=== PATIENT | female | born 1990 | race African-American/Black ===

== ENCOUNTER → 2018-02-11 | Outpatient (CLI) | payer MEDICAID ==
--- NOTE | 2018-02-11 16:56 | Diagnostic Imaging Report ---
INDICATION: Undergoing anatomical assessment, supervision of normal . TECHNIQUE: Multiple real-time grayscale images were obtained over the gravid uterus. COMPARISON: None. FINDINGS: There is presence of single viable intrauterine , currently in cephalic presentation. The placenta is low lying and appears to represent a probable marginal placental previa. Normal amount of amniotic fluid. cardiac activity at 138 beats per minute. anatomical evaluation including visualized portions of the kidneys, bladder, stomach, intracranial structures, four-chamber heart, three-vessel cord and cord insertion site as well as spine appearing unremarkable. Gestational sac configuration is unremarkable. No abnormal perigestational fluid collections. The maternal adnexa is not imaged. The cervical length at 4.3 cm. Biometrical measurements are as follows: Biparietal 5.01 cm, age 21 weeks 2 days. Head circumference 18.04 cm, age 20 weeks 4 days. Abdominal circumference 16.65 cm, age 21 weeks 5 days. Femur length 3.46 cm, age 21 weeks 0 days. Sonographic estimate age: 21 weeks 1 days. Sonographic estimated date of delivery: 06/23/18. Estimated Weight: 409 gm (+/- 60 gm). LMP percentile: 81%. heart rate: 138 beats per minute. number: 1 of 1. IMPRESSION: 1. Single viable intrauterine , currently in cephalic presentation. Sonographically estimated age at 21 weeks 1 day for an estimated date of delivery of June 23, 2018. 2. The placenta is low lying with what appears to be currently marginal placenta previa. Followup imaging is recommended. Dictated by: Dictated on workstation # [id number]
== END ==
LOC: RAD 15:11
PROVIDERS: ATTEND Obstetrics & Gynecology
DX: O44.42 Low lying placenta NOS or without hemorrhage, second trimester (principal); Z3A.21 21 weeks gestation of pregnancy
CPT/HCPCS: 76805

== ENCOUNTER 2018-06-09 07:15 | Inpatient (IN) | payer MEDICAID ==
[~2018-06-09] VITALS: Ht 172.7 cm; Wt 90.7 kg
[2018-06-09] VITALS (44 sets, daily range): BP systolic 129–161; BP diastolic 63–119
--- OUTSIDE RECORDS SUMMARY | 2018-06-09 07:23 | XMS REPORT ---
Author Author Peyton Randhawa [facility] Address [address] [place] [id number] Care Team Providers Care Bunch Maker Hand Name Role Phone Peyton Randhawa PCP Laly Barrera PreferredProvider Unavailable Allergies and Adverse Reactions Name Reaction Notes NO KNOWN DRUG ALLERGIES Plan of Treatment Planned Activity Comments Planned Date Planned Time Plan/Goal Breast ultrasound 11/06/2017 12:00 AM Medications Active Name Start Date Estimated Completion Date SIG Comments 28-800 mg-mcg oral tablet take 1 tablet by oral route daily Name Start Date Expiration Date SIG Comments Zithromax Z-Noah Oral Tablet 250 mg 02/16/2010 02/21/2010 take 2 tablets ( 500 mg) by oral route once daily for 1 day then 1 tablet (250 mg) by oral route once daily for 4 days Zithromax Oral Tablet 250 mg 11/02/2010 11/07/2010 take 2 tablets (500 mg) by oral route once daily for 1 day then 1 tablet (250 mg) by oral route once daily for 4 days metronidazole Oral Tablet 500 mg 06/21/2011 06/28/2011 take 1 tablet (500 mg) by oral route 2 times per day for 7 days Augmentin Oral Tablet 500-125 mg 05/08/2012 05/15/2012 take 1 tablet by oral route every 12 hours for 7 days Lutera (28) Oral tablet 0.1-20 mg-mcg 07/27/2012 08/24/2012 TAKE 1 TABLET BY MOUTH DAILY penicillin V potassium oral tablet 500 mg 10/08/2013 10/15/2013 take 1 tablet ( 500 mg) by oral route 2 times per day for 7 days Discontinued Name Start Date Discontinued Date SIG Comments Cryselle (28) Oral Tablet 0.3-30 mg-mcg 04/22/2008 05/25/2010 Patient states that she is using Aviane Loratadine Oral Tablet 10 mg 04/20/2009 06/01/2010 take 1 tablet (10 mg) by oral route once daily Mucinex Oral Tablet Sustained Release 600 mg 02/16/2010 06/01/2010 take 1 tablet (600 mg) by oral route every 12 hours as needed Aviane Oral Tablet 0.1-20 mg-mcg 05/25/2010 05/08/2012 take 1 tablet by oral route once daily taking Lutera Ernestina Oral Tablet 60 mg 06/21/2011 take 1 tablet (60 mg) by oral route 2 times per day as needed Lutera (28) Oral Tablet 0.1-20 mg-mcg 09/09/2011 10/04/2011 TAKE 1 TABLET BY MOUTH DAILY Vibramycin Oral 100 mg Oral Capsule 05/08/2012 take 1 capsule (100 mg) by oral route twice daily Carafate Oral Tablet 1 gram 10/04/2011 05/08/2012 As a slurry - take by mouth before meals and at bedtime Problem List Description Status Onset Contraceptive management Active Vital Signs Date Time BP-Sys(mm[Hg] BP-Mirta(mm[Hg]) HR(bpm) RR(rpm) Temp WT HT HC BMI BSA BMI Percentile O2 Sat(%) 11/24/2017 4:27:00 PM 120 mmHg 88 mmHg 75 bpm 17 rpm 98.2 F 146.375 lbs 68 in 22.256 kg/m 1.7848 m 100 % 10/29/2017 4:11:00 PM 145 mmHg 98 mmHg 84 bpm 18 rpm 98.6 F 145 lbs 68 in 22.05 kg/m2 1.78 m2 01/04/2014 9:19:00 AM 126 mmHg 64 mmHg 79 bpm 18 rpm 96.9 F 151.25 lbs 68 in 22.9972 kg/m 1.8143 m 99 % 10/08/2013 1:51:00 PM 120 mmHg 66 mmHg 74 bpm 18 rpm 97.4 F 143 lbs 68 in 21.74 kg/m2 1.76 m2 99 % 05/08/2012 2:18:00 PM 118 mmHg 62 mmHg 68 bpm 16 rpm 98.8 F 145 lbs 68 in 22.0469 kg/m 1.7764 m 10/04/2011 11:02:00 AM 110 mmHg 60 mmHg 86 bpm 18 rpm 97.6 F 142 lbs 68 in 21.59 kg/m2 1.76 m2 99 % 10/01/2011 1:04:00 PM 121 mmHg 84 mmHg 80 bpm 20 rpm 98 F 143.125 lbs 68 in 21.7619 kg/m 1.7649 m 06/21/2011 2:01:00 PM 116 mmHg 76 mmHg 70 bpm 18 rpm 99.1 F 145 lbs 66 in 23.40 kg/m2 1.75 m2 11/02/2010 3:34:00 PM 116 mmHg 62 mmHg 72 bpm 18 rpm 98.2 F 146 lbs 06/01/2010 1:42:00 PM 118 mmHg 70 mmHg 74 bpm 18 rpm 99.1 F 142 lbs 68 in 21.5908 kg/m 1.7579 m 02/16/2010 1:58:00 PM 110 mmHg 80 mmHg 64 bpm 18 rpm 98.4 F 142 lbs 04/20/2009 1:11:00 PM 120 mmHg 78 mmHg 78 bpm 20 rpm 98.1 F 136 lbs 68 in 20.6785 kg/m 1.7204 m 38.5 % Social History Name Description Comments No Alcohol Use Tobacco Never smoker History of Procedures Date Ordered Description Order Status 10/01/2011 12:00 AM EGD DIAGNOSTIC BRUSH WASH Reviewed 10/29/2017 4:41 PM URINE TEST Reviewed 10/29/2017 12:00 AM CYTOPATH C/V THIN LAYER Reviewed 10/29/2017 12:00 AM SPECIMEN HANDLING OFFICE-LAB Reviewed 10/29/2017 12:00 AM N.GONORRHOEAE DNA AMP PROB Reviewed 10/29/2017 12:00 AM CHLAMYDIA CULTURE Reviewed 10/29/2017 12:00 AM HIV-1ANTIBODY Reviewed 10/29/2017 12:00 AM URINALYSIS AUTO W/SCOPE Reviewed 10/29/2017 12:00 AM OBSTETRIC PANEL Reviewed 10/29/2017 12:00 AM ASSAY OF FERRITIN Reviewed 10/29/2017 12:00 AM URINE DRUG SCREEN RAPID Reviewed 10/29/2017 12:00 AM RBC SICKLE CELL TEST Reviewed 10/29/2017 12:00 AM DETECT AGENT NOS DNA AMP Reviewed 10/29/2017 12:00 AM TRICHOMONAS VAGINALIS AMPLIF Reviewed 10/29/2017 12:00 AM HEPATITIS C AB TEST Reviewed 10/29/2017 12:00 AM US BREAST UNI REAL TIME WITH IMAGE COMPLETE Reviewed 11/20/2017 12:00 AM US PREG UTERUS REAL TIME W/IMAGE DCMTN TRANSVAG Reviewed 11/24/2017 12:00 AM EXAM OF CERVIX W/SCOPE Reviewed 06/01/2010 12:00 AM CYTOPATH C/V THIN LAYER Reviewed 01/04/2014 12:00 AM TB INTRADERMAL TEST Reviewed Results Summary Date and Description Results 10/29/2017 4:41 PM Test, Urine positive 10/29/2017 4:54 PM Pap Smear Collected 10/29/2017 5:30 PM WBC 7.1 RBC 4.57 HGB 13.50 g/dLHCT 40.70 %MCV 89.0 fLMCH 29.50 pgMCHC 33.20 g/dLRDW SD 41 RDW CV 12.40 %MPV 10.10 fLPLT 257 NRBC# 0.00 NRBC% 0.0 %NEUT 53.40 %%LYMP 35.0 %%MONO 8.40 %%EOS 2.50 %%BASO 0.40 %#NEUT 3.80 #LYMP 2.49 #MONO 0.60 #EOS 0.18 #BASO 0.03 MANUAL DIFF NOT IND 10/29/2017 5:40 PM Cannabinoids (THC) NEGATIVE ng/mLPhencyclidine (PCP) NEGATIVE ug/mLCocaine NEGATIVE Methamphetamine NEGATIVE ug/mLOpiates NEGATIVE ng /mLAmphetamine NEGATIVE Benzodiazepines NEGATIVE ng/mLTricyclic Antidepres NEGATIVE Methadone NEGATIVE ng/mLBarbiturates NEGATIVE ng/mLOxycodone NEGATIVE Propoxyphene (PPX) NEGATIVE ng/mL 10/29/2017 6:08 PM HIV AG/AB COMBO 0.52 FERRITIN 17.0 ng/mLRPR Non Reactive Hep C Virus Ab 0.1 HBsAg Screen Negative Rubella Antibodies, IgG 6.64 Hemoglobin (Hgb)Solubility Negative 10/29/2017 6:13 PM COLOR YELLOW APPEARANCE CLEAR SPEC GRAV 1.010 pH 5.5 PROTEIN NEGATIVE GLUCOSE NEGATIVE mg/dLKETONE NEGATIVE BILIRUBIN NEGATIVE BLOOD NEGATIVE NITRITE NEGATIVE LEUK SCREEN NEGATIVE WBC/HPF RARE RBC/HPF NEGATIVE CASTS/LPF NEGATIVE /LPFCRYSTALS NEGATIVE MUCOUS THRDS NEGATIVE BACTERIA NEGATIVE EPITH CELLS FEW SQUAMOUS /HPFTRICHOMONAS NEGATIVE YEAST NEGATIVE CULT ORDERED YES History Of Immunizations Not available. History of Past Illness Name Date of Onset Comments Headache Apr 20 2009 1:19PM Contraceptive management Bronchitis, Acute Feb 16 2010 1:59PM Routine gynecological examination Jun 01 2010 1:44PM Contraceptive management Jun 01 2010 1:44PM Acute Pharyngitis Nov 02 2010 3:33PM Bacterial Vaginitis Jun 21 2011 2:03PM Dysphagia, unspecified Oct 01 2011 1:09PM Dysphagia Oct 04 2011 11:08AM Acute esophagitis Oct 04 2011 11:08AM Bronchitis, Acute May 08 2012 2:21PM Pharyngitis, Acute Oct 08 2013 1:53PM General Medical Exam, School/Work/etc Jan 04 2014 9:23AM test confirmed positive Oct 29 2017 4:14PM Breast lump on left side at 12 o'clock position Oct 29 2017 4:14PM Breast lump on left side at 12 o'clock position Nov 06 2017 4:25PM Encounter for care of first , first trimester Nov 20 2017 4 :19PM Low grade squamous intraepithelial lesion (LGSIL) on Pap smear Nov 24 2017 4: 18PM Payers Insurance Name Company Name Plan Name Plan Number Policy Number Policy Group Number Start Date [place] Community Administrator Prog - RHC [place] Community Administrator Prog - RHC [id number] N/A [facility] [id number] N/A BCBS Bcbs [facility] [id number] July BCBS Bcbs Of [place] [id number] July [facility] Occupational Medicine [id number] Saturday, January 04, 2014 History of Encounters Visit Date Visit Type Provider 11/24/[address] Peyton Randhawa MD 11/20/[address] Peyton Randhawa MD 10/29/2017 Office visit Alva Perez CASH APPLICATIONS SPECIALIST 01/04/2014 Office visit Mireya Bazzi CASH APPLICATIONS SPECIALIST 10/04/2011 Office visit Micheal Granda MD 10/01/2011 Office visit Laly Barrera CASH APPLICATIONS SPECIALIST 04/20/2009 Office visit Nicole BLANTON 01/24/2009 Office visit Isak Cosme MD 01/20/2009 Office visit Rosalinda BLANTON
--- OUTSIDE RECORDS SUMMARY | 2018-06-09 07:24 | XMS REPORT ---
Author Author Peyton Randhawa [facility] Address [address] [place] [id number] Care Team Providers Care Oracle Pl Sql Developer Name Role Phone Peyton Randhawa PCP Laly Barrera PreferredProvider Unavailable Allergies and Adverse Reactions Name Reaction Notes NO KNOWN DRUG ALLERGIES Plan of Treatment Planned Activity Comments Planned Date Planned Time Plan/Goal Breast ultrasound 11/11/2017 12:00 AM Breast ultrasound 11/06/2017 12:00 AM Medications Active [...] HC BMI BSA BMI Percentile O2 Sat(%) 10/29/2017 4:11:00 PM 145 mmHg 98 mmHg 84 bpm 98.6 F 145 lbs 68 in 22.0469 kg/m 1.7764 m 01/04/2014 9:19:00 AM 126 mmHg 64 mmHg 79 bpm 18 rpm 96.9 F 151.25 lbs 68 in 23.00 kg/m2 1.81 m2 99 % 10/08/2013 1:51:00 PM 120 mmHg [...] UTERUS REAL TIME W/IMAGE DCMTN TRANSVAG Reviewed 06/01/2010 12:00 AM CYTOPATH C/V THIN [...] first trimester Nov 20 2017 4 :19PM Payers Insurance Name Company Name Plan Name Plan Number Policy Number Policy Group Number Start Date [place] Tablet Making Machine Operator Helper Prog - RHC [place] Tablet Making Machine Operator Helper Prog - RHC [id number] N/A [facility] Fhp [facility] [id number] N/A BCBS Bcbs [place] [id number] July BCBS Bcbs Of [place] [id number] , July 04, 2011 [facility] Occupational Medicine [id number] Saturday, January 04, 2014 History of Encounters Visit Date Visit Type Provider 11/20/[address] Peyton Randhawa MD 10/29/2017 Office visit Alva Perez DRAPERY HEAD FORMER 01/04/2014 Office visit Mireya Bazzi DRAPERY HEAD FORMER 10/04/2011 Office visit Micheal Granda MD 10/01/2011 Office visit Laly Barrera DRAPERY HEAD FORMER 04/20/2009 Office visit Nicole BLANTON 01/24/2009 Office visit Isak Cosme MD 01/20/2009 Office visit Rosalinda BLANTON
--- OUTSIDE RECORDS SUMMARY | 2018-06-09 07:24 | XMS REPORT ---
Author Author Peyton Randhawa [facility] Address [address] [place] [phone] Care Team Providers Care Furnace Operator And Tender Name Role Phone Peyton Randhawa PCP Laly [...] UNI REAL TIME WITH IMAGE COMPLETE Reviewed 06/01/2010 12:00 AM CYTOPATH C/V THIN [...] 12 o'clock position Nov 06 2017 4:25PM Payers Insurance Name Company Name Plan Name Plan Number Policy Number Policy Group Number Start Date [place] Transmission Mechanic Prog - RHC [place] Transmission Mechanic Prog - RHC [id number] N/A [facility] F[facility] [id number] N/A BCBS [place] [place] [id number] July BCBS [employer] [place] [id number] July [facility] Occupational Medicine [id number] Saturday, January 04, 2014 History of Encounters Visit Date Visit Type Provider 11/20/[address] Peyton Randhawa MD 10/29/2017 Office visit Alva Perez VAPOR COATER 01/04/2014 Office visit Mireya Bazzi VAPOR COATER 10/04/2011 Office visit Micheal Granda MD 10/01/2011 Office visit Laly Barrera VAPOR COATER 04/20/2009 Office visit Nicole BLANTON 01/24/2009 Office visit Isak Cosme MD 01/20/2009 Office visit Rosalinda BLANTON
--- OUTSIDE RECORDS SUMMARY | 2018-06-09 07:25 | XMS REPORT ---
Author Author Alva Perez [facility] Address [address] [place] [phone] Care Team Providers Care Rough Rounder Machine Name Role Phone Alva Perez PCP Laly Barrera PreferredProvider Unavailable Allergies and Adverse Reactions Name Reaction Notes NO KNOWN DRUG ALLERGIES Plan of Treatment Not available. Medications Name Start Date Expiration Date SIG Comments [...] List Description Status Onset Contraceptive management Active Dysphagia Active Vital Signs Date Time BP-Sys(mm[Hg] BP-Mirta(mm[Hg]) [...] 12:00 AM EGD DIAGNOSTIC BRUSH WASH Reviewed 06/01/2010 12:00 AM CYTOPATH C/V THIN LAYER Reviewed 01/04/2014 12:00 AM TB INTRADERMAL TEST Reviewed Results Summary Not available. History Of Immunizations Not available. History of Past Illness Name Date of Onset Comments Headache Apr 20 2009 1:19PM Contraceptive management Dysphagia Bronchitis, Acute Feb 16 2010 1:59PM Routine [...] Medical Exam, School/Work/etc Jan 04 2014 9:23AM Payers Insurance Name Company Name Plan Name Plan Number Policy Number Policy Group Number Start Date [place] Linux Admin Engineer [facility] [id number] N/A [facility] [id number] N/A BCBS [place] [id number] July BCBS Bcbs Of [place] [id number] July [facility] Med Occupational Medicine [id number] Saturday, January 04, 2014 History of Encounters Visit Date Visit Type Provider 10/29/2017 Office visit Alva Perez ESTATE CONSERVATOR 01/04/2014 Office visit Mireya Bazzi ESTATE CONSERVATOR 10/04/2011 Office visit Micheal Granda MD 10/01/2011 Office visit Laly Barrera ESTATE CONSERVATOR 04/20/2009 Office visit Nicole BLANTON 01/24/2009 Office visit Isak Cosme MD 01/20/2009 Office visit Rosalinda BLANTON
--- OUTSIDE RECORDS SUMMARY | 2018-06-09 07:25 | XMS REPORT ---
Author Author LEESA HOLLIS Organization [facility] Address [address] [place] [address] Care Team Providers Care Sock Lining Examiner Name Role Phone LEESA HOLLIS Unavailable PROBLEMS Unknown Problems ALLERGIES No Information ENCOUNTERS Encounter Location Date Diagnosis [facility] [address] [facility] [facility] [id number] [place] [address] Oct Positive test Z32.01 IMMUNIZATIONS No Known Immunizations SOCIAL HISTORY Never Assessed REASON FOR VISIT test (walk-in). Cindi BARRETO PLAN OF CARE VITAL SIGNS MEDICATIONS Unknown Medications RESULTS Name Result Date Reference Range TEST, URINE (IN HOUSE) 2017-10-21 RESULTS POSITVE Lot # [id number] Control + Exp date 04/2019 PROCEDURES Procedure Date Ordered Result Body Site URINE TEST October 21, 2017 INSTRUCTIONS MEDICATIONS ADMINISTERED No Known Medications
--- OUTSIDE RECORDS SUMMARY | 2018-06-09 07:25 | XMS REPORT ---
Author Alva Lieberman [facility] Address [address] [place] [phone] Care Team Providers Care Defect Cutter Name Role Phone Alva Perez PCP Laly Barrera PreferredProvider Unavailable Allergies and Adverse Reactions Name Reaction Notes NO KNOWN DRUG ALLERGIES Plan of Treatment Planned Activity Comments Planned Date Planned Time Plan/Goal *Thin layer pap with reflex to HPV ; cervical/vaginal (ThinPrep or Surepath) 10/29/2017 12:00 AM Gonorrhea 10/29/2017 12:00 AM Chlamydia 10/29/2017 12:00 AM HIV-1 antibody 10/29/2017 12:00 AM UA with Culture and Sensitivity 10/29/2017 12:00 AM panel (CBC with differential, automated, Hepatitis B surface antigen ( HBsAg), Rubella antibody, RBC antibody screen, Blood typing (ABO and Rh(D), RPR w/ Reflex to TP 10/29/2017 12:00 AM FERRITIN 10/29/2017 12:00 AM URINE DRUG SCREEN RAPID 10/29/2017 12:00 AM SICKLE CELL SCREEN 10/29/2017 12:00 AM TRICHOMONAS AMPLIFIED 10/29/2017 12:00 AM TRICHOMONAS AMPLIFIED 10/29/2017 12:00 AM HEPATITIS C AB 10/29/2017 12:00 AM Medications Name Start Date Expiration Date SIG [...] Name Start Date Discontinued Date SIG Comments Aayushanny (28) Oral Tablet 0.3-30 mg-mcg 04/22/2008 05/25/2010 [...] PM URINE TEST Reviewed 10/29/2017 12:00 AM US BREAST UNI REAL TIME WITH IMAGE COMPLETE Reviewed 06/01/2010 12:00 AM CYTOPATH C/V THIN LAYER Reviewed 01/04/2014 12:00 AM TB INTRADERMAL TEST Reviewed Results Summary Date and Description Results 10/29/2017 4:41 PM Test, Urine positive 10/29/2017 4:54 PM Pap Smear Collected History Of Immunizations Not available. History of [...] 12 o'clock position Oct 29 2017 4:14PM Payers Insurance Name Company Name Plan Name Plan Number Policy Number Policy Group Number Start Date [place] Wet Process Assistant Head Miller Prog - RHC [facility] Asst Prog - RHC [id number] N/A [facility] [id number] N/A BCBS Bcbs Of [place] [id number] July BCBS Bcbs Of [place] [id number] July [facility] Occupational Medicine [id number] Saturday, January 04, 2014 History of Encounters Visit Date Visit Type Provider 10/29/2017 Office visit Alva Perez ELEVATOR ERECTOR HELPER 01/04/2014 Office visit Mireya Bazzi ELEVATOR ERECTOR HELPER 10/04/2011 Office visit Micheal Granda MD 10/01/2011 Office visit Laly Barrera ELEVATOR ERECTOR HELPER 04/20/2009 Office visit Nicole BLANTON 01/24/2009 Office visit Isak Cosme MD 01/20/2009 Office visit Rosalinda BLANTON
--- OUTSIDE RECORDS SUMMARY | 2018-06-09 07:25 | XMS REPORT ---
Author Alva Lieberman [facility] Address [address] [place] [phone] Care Team Providers Care Foreign Correspondent Name Role Phone Alva Perez PCP Laly [...] Policy Number Policy Group Number Start Date [place] Horses Or Mules Teamster Prog - RHC [facility] Asst Prog - RHC [id number] N/A [facility] [id number] N/A BCBS Bcbs Of [place] [id number] July BCBS Bcbs Of [place] [id number] July [facility] Occupational Medicine [id number] Saturday, January 04, 2014 History of Encounters Visit Date Visit Type Provider 10/29/2017 Office visit Alva Perez RUG DYER HELPER 01/04/2014 Office visit Mireya Bazzi RUG DYER HELPER 10/04/2011 Office visit Micheal Granda MD 10/01/2011 Office visit Laly Barrera RUG DYER HELPER 04/20/2009 Office visit Nicole BLANTON 01/24/2009 Office visit Isak Cosme MD 01/20/2009 Office visit Rosalinda BLANTON
--- OUTSIDE RECORDS SUMMARY | 2018-06-09 07:25 | XMS REPORT ---
Author Author Peyton Randhawa [facility] Address [address] [place] [phone] Care Team Providers Care Employment Manager Name Role Phone Peyton Randhawa PCP Laly Barrera PreferredProvider Unavailable Allergies and Adverse Reactions Name Reaction Notes NO KNOWN DRUG ALLERGIES Plan of Treatment Planned Activity Comments Planned Date Planned Time Plan/Goal Breast ultrasound 11/11/2017 12:00 AM Breast ultrasound 11/06/2017 12:00 AM Medications Name Start Date Expiration Date SIG Comments Zithromax Z-Naoh Oral Tablet 250 mg 02/16/2010 02/21/2010 take [...] Policy Number Policy Group Number Start Date [place] Supply Chain Tech Prog - RHC [place] Supply Chain Tech Prog - RHC [id number] N/A [facility] [id number] N/A BCBS Bcbs Of [place] [id number] July BCBS Bcbs Of [place] [id number] July [facility] Med Occupational Medicine [id number] Saturday, January 04, 2014 History of Encounters Visit Date Visit Type Provider 11/20/[address] Peyton Randhawa MD 10/29/2017 Office visit Alva Perez TOBACCO WEIGHER 01/04/2014 Office visit Mireya Bazzi TOBACCO WEIGHER 10/04/2011 Office visit Micheal Granda MD 10/01/2011 Office visit Laly Barrera TOBACCO WEIGHER 04/20/2009 Office visit Nicole BLANTON 01/24/2009 Office visit Isak Cosme MD 01/20/2009 Office visit Rosalinda BLANTON
--- OUTSIDE RECORDS SUMMARY | 2018-06-09 07:26 | XMS REPORT | Continuity of Care Document ---
Author Author [facility] Organization [facility] Address Unknown Phone Unavailable Allergies Active Description Code Type Severity Reaction Onset Reported/Identified Relationship to Patient Clinical Status Yes No Known Drug Allergies [id number] N/A N/A Medications There is no data. Problems Date Dx Coded Attending Type Code Diagnosis Diagnosed By 02/12/2018 DANIELECH DO PAULETTE S Ot O44.42 LOW LYING PLACENTA NOS OR WITHOUT HEMOR, 02/12/2018 FENECH DO PAULETTE S Ot Z3A.21 21 WEEKS GESTATION OF 02/17/2018 FENECH DO, PAULETTE S Ot O44.42 LOW LYING PLACENTA NOS OR WITHOUT HEMOR, 02/17/2018 FENECH DO, PAULETTE S Ot Z3A.21 21 WEEKS GESTATION OF 02/25/2018 FENECH DO, PAULETTE S Ot O44.42 LOW LYING PLACENTA NOS OR WITHOUT HEMOR, 02/25/2018 FENECH DO, PAULETTE S Ot Z3A.21 21 WEEKS GESTATION OF Procedures There is no data. Results There is no data. Encounters ACCT No. Visit Date/Time Discharge Status Pt. Type Provider Facility Loc./Unit Complaint [id number] 11/24/2017 17:02:18 11/24/2017 23:59:59 CLS Outpatient SydneePeyton hallman [id number] 11/20/2017 16:09:52 11/20/2017 23:59:59 CLS Outpatient Peyton Randhawa [id number] 10/29/2017 17:25:38 10/29/2017 23:59:59 CLS Outpatient Alva Perez [id number] 01/04/2014 10:11:32 01/04/2014 23:59:59 CLS Outpatient Mireya Bazzi [id number] 10/21/2017 12:40:00 10/21/2017 23:59:59 CLS Outpatient SUSY MARKHAM LAC [id number] 03/31/2018 06:09:31 Document Registration [id number] 12/15/2017 14:38:15 Document Registration [id number] 11/04/2017 15:29:32 Document Registration [id number] 10/29/2017 17:08:46 Document Registration [id number] 02/11/2018 15:11:00 02/11/2018 23:59:59 CLS Outpatient PAULETTE RODRIGUES DO [facility] RAD [id number] 06/09/2018 07:15:00 ACT Inpatient PAULETTE RODRIGUES DO [facility] LDRP INDUCTION OF LABOR
[2018-06-09] MEDS ORDERED: D5 LR IV SOLUTION 1,000 ML IV ONE (08:04)
[2018-06-09] MEDS: D5 LR IV SOLUTION 1,000 ML IV SCH ×2 (08:10→16:18)
[2018-06-09] MEDS ORDERED: AMPICILLIN FOR IV USE 2,000 MG in NS (IVPB) 50 ML IV SCH (08:22)
[2018-06-09] MEDS ORDERED: AMPICILLIN 2,000 MG/20 ML (IV USE) ONE (08:26)
[2018-06-09] MEDS ORDERED: NS (IVPB) 50 ML ONE (08:26)
[2018-06-09] MEDS ORDERED: MINERAL OIL CONCENTRATE 99.9% 15 ML UDC TOP PRN (08:30)
[2018-06-09 08:32] LABS: BILIRUBIN,URINE NEGATIVE (NEGATIVE); CLARITY,URINE CLEAR; COLOR,URINE YELLOW; GLUCOSE, URINE (UA) 1+ (NEGATIVE); KETONES,URINE NEGATIVE (NEGATIVE); LEUKOCYTE ESTERASE ,URINE 3+ (NEGATIVE); NITRITE,URINE NEGATIVE (NEGATIVE); PH,URINE 6 (5-9); PROTEIN,URINE 2+ (NEGATIVE); UROBILINOGEN,URINE NORMAL (NORMAL)
[2018-06-09 08:42] LABS: BACTERIA,URINE MODERATE /HPF; RBC,URINE 0-2 /HPF; WBC,URINE >100 /HPF
[2018-06-09 09:08] LABS: BASOPHILS % (AUTO) 0 % (0-10); EOSINOPHILS # (AUTO) 0.1 10^3/uL (0.0-0.3); EOSINOPHILS % (AUTO) 2 % (0-10); HEMATOCRIT 39 % (35-52); LYMPHOCYTES # (AUTO) 1.3 X 10^3 (1.0-4.0); LYMPHOCYTES % (AUTO) 16 % (12-44); MEAN CORPUSCULAR HEMOGLOBIN 30 PG (25-34); MEAN CORPUSCULAR HGB CONC 34 G/DL (32-36); MEAN CORPUSCULAR VOLUME 90 FL (80-99); MEAN PLATELET VOLUME 11.2 FL (7.4-10.4); MONOCYTES # (AUTO) 0.7 X 10^3 (0.0-1.0); MONOCYTES % (AUTO) 8 % (0-12); NEUTROPHILS # (AUTO) 5.7 X 10^3 (1.8-7.8); NEUTROPHILS % (AUTO) 73 % (42-75); PLATELET COUNT 191 10^3/uL (130-400); RED CELL DISTRIBUTION WIDTH 14.1 % (10.0-14.5); WHITE BLOOD COUNT 7.7 10^3/uL (4.3-11.0)
[2018-06-09] MEDS ORDERED: BUPIVACAINE 0.25% 30 ML (SENSORCAINE) VIAL ONE (09:45)
[2018-06-09] MEDS ORDERED: SUFENTA 0.6MCG/ML BUPIVA 0.125 100 ML ONE (09:46)
[2018-06-09] MEDS ORDERED: fentaNYL INJECTION 100 MCG/2 ML AMP ONE (09:46)
--- NOTE | 2018-06-09 09:48 | NUR ---
Dr. Ortega and Patti SRNA here for epidural placement. Procedure explained, consent reviewed and signed by anesthesia. Questions answered to patient's satisfaction. Time out taken to verify correct patient/procedure. Patient up to side of bed, assisted into sitting position. Betadine prep done x3 and sterile drape applied. Local done, see anesthesia record. Test dose given, see anesthesia record for drug and dosage. Epidural catheter secured in place. Epidural placement complete. Assisted back into bed, monitors adjusted. Epidural dosed, see anesthesia record. Epidural of Sufenta/Bupvicaine @12cc/hr stated per pump. Patient tolerated procedure well.
[2018-06-09] MEDS ORDERED: OXYTOCIN/NORMAL SALINE 500 ML IV SCH ×2 (10:10→18:08)
[2018-06-09] MEDS ORDERED: LACTATED RINGERS 1,000 ML IV ONE (11:01)
[2018-06-09] MEDS ORDERED: EPIDURAL (SUFENTA 0.6MCG/ML BUPIVA 0.125%) 100 ML BAG EPI SCH (11:15)
[2018-06-09] MEDS ORDERED: CATHETER FLUSH 10 ML SYR IV PRN (11:15)
[2018-06-09] MEDS ORDERED: diphenhydrAMINE 50 MG/ML INJ (BENADRYL) IV PRN (11:15)
[2018-06-09] MEDS ORDERED: ONDANSETRON 4 MG/2 ML (SDV) Z0FRAN IV PRN (11:15)
[2018-06-09] MEDS ORDERED: NALOXONE 0.4 MG/ML 1 ML (NARCAN) VIAL IV PRN (11:15)
[2018-06-09] MEDS: AMPICILLIN FOR IV USE 1,000 MG in NS (IVPB) 50 ML IV SCH ×2 (12:22→16:08)
--- NOTE | 2018-06-09 13:54 | History & Physical-OB ---
OB - Chief Complaint & HPI Date/Time Date of Admission: Date of Admission: Jun 09, 2018 at 7:15 am Date seen by a Provider: Jun 09, 2018 Time Seen by a Provider: 08:00 Chief Complaint/History OB-Reason for Admission/Chief: Induction of Labor Hx : 1 Hx Para: 0 Expected Date of Delivery: Jun 26, 2018 Gestational Age in Weeks: 37 Gestational Age in Days: 3 Indication for induction: other (Preeclampsia) History of Labs O pos Antibody neg RI RPR NR HBsAg NR HIV NR GC neg GBS + Allergies and Home Medications Allergies Coded Allergies: No Known Drug Allergies (Unverified , 06/09/18) Patient Home Medication List Home Medication List Reviewed: Yes OB - History Hx of Present Care: Yes Ultrasounds: Normal mid trimester US Obstetrical Complications: Pre-eclampsia Medical Complications: None Patient Past Medical History n/a Social History/Family History HIV/AIDS: No Sexually Transmitted Disease: No Alcohol Use: Denies Use Recreational Drug Use: No Immunizations Hepatitis B: Yes Date of Influenza Vaccine: Mar 25, 2018 OB - Admission Exam Physical Exam Vitals: Vital Signs 06/09/18 06/09/18 06/09/18 09:30 10:00 10:22 Temp 98.7 Pulse 87 Resp 16 B/P (MAP) 159/84 (109) Pulse Ox 99 O2 Delivery Room Air HEENT: NCAT Heart: Rhythm Normal Lungs: Clear Extremities: Normal Reflexes: Normal Cervical Dilatation: 5cm Effacement: 75% Station: -1 Membranes: Intact Heart Rate: 130's Decelerations: No Decelerations Short Term Variability: Present Nursing Home Variability: Average (6-25) Contractions on Admission: 6-10 Minutes Apart Intensity: Mild Labs Laboratory Tests Test 06/09/18 07:20 06/09/18 08:55 Range/Units Urine Color YELLOW Urine Clarity CLEAR Urine pH 6 5-9 Urine Specific [place] 1.020 1.016-1.022 Urine Protein 2+ H NEGATIVE Urine Glucose (UA) 1+ H NEGATIVE Urine Ketones NEGATIVE NEGATIVE Urine Nitrite NEGATIVE NEGATIVE Urine Bilirubin NEGATIVE NEGATIVE Urine Urobilinogen NORMAL NORMAL MG/DL Urine Leukocyte Esterase 3+ H NEGATIVE Urine RBC (Auto) 2+ H NEGATIVE Urine RBC 0-2 /HPF Urine WBC >100 H /HPF Urine Squamous Epithelial Cells 10-25 H /HPF Urine Crystals NONE /LPF Urine Bacteria MODERATE H /HPF Urine Casts NONE /LPF Urine Mucus NEGATIVE /LPF Urine Culture Indicated YES White Blood Count 7.7 4.3-11.0 10^3/uL Red Blood Count 4.31 L 4.35-5.85 10^6/uL Hemoglobin 13.0 11.5-16.0 G/DL Hematocrit 39 35-52 % Mean Corpuscular Volume 90 80-99 FL Mean Corpuscular Hemoglobin 30 25-34 PG Mean Corpuscular Hemoglobin Concent 34 32-36 G/DL Red Cell Distribution Width 14.1 10.0-14.5 % Platelet Count 191 130-400 10^3/uL Mean Platelet Volume 11.2 H 7.4-10.4 FL Neutrophils (%) (Auto) 73 42-75 % Lymphocytes (%) (Auto) 16 12-44 % Monocytes (%) (Auto) 8 0-12 % Eosinophils (%) (Auto) 2 0-10 % Basophils (%) (Auto) 0 0-10 % Neutrophils # (Auto) 5.7 1.8-7.8 X 10^3 Lymphocytes # (Auto) 1.3 1.0-4.0 X 10^3 Monocytes # (Auto) 0.7 0.0-1.0 X 10^3 Eosinophils # (Auto) 0.1 0.0-0.3 10^3/uL Basophils # (Auto) 0.0 0.0-0.1 10^3/uL Uric Acid 4.5 2.6-7.2 MG/DL OB - Assessment/Plan/Diagnosis Assessment Assessment: induction of labor Admission Dx 28 yo @ 37 weeks Preeclampsia GBS pos Admission Status: Inpatient Order (span 2 midnights) Reason for Inpatient Admission: Induction of term labor Preeclampsia Plan Plan: Induction Induction Method: PAULETTE SANTAMARIA DO Jun 09, 2018 1:54 pm
[2018-06-09] MEDS ORDERED: CATHETER FLUSH 10 ML SYR IV SCH ×2 (14:00→22:00)
[2018-06-09] MEDS ORDERED: LIDOCAINE/EPI 2% 1:200,00 (XYLOCAINE) 10 ML VIAL ONE ×2 (16:42→16:44)
--- NOTE | 2018-06-09 17:13 | NUR ---
ESTRELLA ECHEVERRIA presented to unit via ambulation from home, accompanied by family and S.O., for INDUCTION OF LABOR. ESTRELLA ECHEVERRIA weighed, gowned, voided, and to bed. EFHM and TOCO applied, VS taken. ESTRELLA ECHEVERRIA oriented to bed controls, call light, TV, heat, and A/C controls. Addendum: 06/09/18 at 2109 by TRAVON PUCKETT RN Time is error. Event occurred at 0713
--- NOTE | 2018-06-09 18:12 | Discharge Inst-Women's Service ---
Discharge Inst-Women's Serv Depart Medication/Instructions New, Converted or Re-Newed RX: RX on Chart Consults/Follow Up Additional Follow Up: Yes Orders/Referrals Dr. Rodrigues in 6 weeks Activity Activity: Activity as Tolerated Driving Instructions: No Driving for 1 Week NO SMOKING: NO SMOKING Nothing Inside Vagina: No Douching, No Protivin, No Tampons Diet Discharge Diet: No Restrictions Symptoms to Report to : Bleeding Excessive, Pain Increased, Fever Over 101 Degrees F, Vaginal Bleeding Increase, Questions/Concerns For Any Problems or Questions: Contact Your Physician PAULETTE RODRIGUES DO Jun 09, 2018 18:12
[2018-06-09] MEDS ORDERED: IBUP-844 PO (18:14)
[2018-06-09] MEDS ORDERED: Benzocaine/Menthol TP (18:14)
[2018-06-09] MEDS ORDERED: ACHD5005 PO (18:14)
[2018-06-09] MEDS ORDERED: DOCU100C37 PO (18:14)
[2018-06-09] MEDS ORDERED: PNV1TABL67 PO (18:14)
[2018-06-09] MEDS ORDERED: HYDROcodone/APAP 5 MG/325 MG (LORTAB) TAB PO PRN (18:15)
[2018-06-09] MEDS ORDERED: MEASLES,MUMPS,RUBELLA 1 EA INJ SQ ONE (18:15)
[2018-06-09] MEDS ORDERED: DIBUCAINE (NUPERCAINAL) 1% OINT 30 GM TOP PRN (18:15)
[2018-06-09] MEDS ORDERED: TETANUS,DIPTH,PERTUSS P/F (BOOSTRIX) 0.5 ML VIAL IM ONE (18:15)
[2018-06-09] MEDS ORDERED: DIBU30OI TOP (18:15)
[2018-06-09] MEDS ORDERED: BENZOCAINE/MENTHOL (DERMOPLAST) 56 ML CAN TP PRN (18:15)
[2018-06-09] MEDS ORDERED: WITCH HAZEL(TUCKS) 40 EA JAR TOP PRN (18:15)
--- NOTE | 2018-06-09 18:20 | OB Labor & Delivery Record ---
L&D History Date of Service Date of Service: Jun 09, 2018 History Expected Date of Delivery: Jun 26, 2018 Gestational Age in Weeks: 37 Hx : 1 Hx Para: 0 Complications Events: Pre-Eclampsia Operative Indications (Cesarea: N/A-Vaginal Delivery Intrapartal Events: None L&D Stage1 Stage One Onset of Labor - Date: Jun 09, 2018 Monitors and Tracing Monitor Mode: External Heart Rate: 105 Station: -1 Blood Bank Business Manager Variability: Average (6-10) Short Term Variability: Present Presentation: Vertex Vital Signs VS - Last 72 Hours, by Label 06/09/18 06/09/18 06/09/18 06/09/18 07:25 07:38 09:30 09:52 Temp 98.0 98.7 Pulse 114 95 Resp 18 B/P (MAP) 142/101 (115) 135/94 (108) 161/98 (119) Pulse Ox 99 O2 Delivery Room Air Room Air 06/09/18 06/09/18 06/09/18 06/09/18 10:00 10:15 10:16 10:21 Pulse 96 100 94 97 B/P (MAP) 149/95 (113) 138/92 (107) 141/84 (103) 142/94 (110) Pulse Ox 99 99 99 99 O2 Delivery Room Air 06/09/18 06/09/18 06/09/18 06/09/18 10:22 10:30 10:45 11:00 Pulse 87 96 87 96 Resp 16 16 16 B/P (MAP) 159/84 (109) 152/85 (107) 142/76 (98) 141/78 (99) Pulse Ox 99 96 97 96 O2 Delivery Room Air Room Air Room Air 06/09/18 06/09/18 06/09/18 06/09/18 11:15 11:30 11:45 12:00 Temp 97.5 Pulse 85 90 88 85 Resp 20 B/P (MAP) 153/70 (97) 150/76 (100) 155/67 (96) 159/94 (115) O2 Delivery Room Air Room Air Room Air Room Air 06/09/18 06/09/18 06/09/18 06/09/18 12:15 12:30 12:45 13:00 Pulse 83 81 92 80 Resp 20 B/P (MAP) 141/66 (91) 129/69 (89) 135/77 (96) 133/80 (97) O2 Delivery Room Air Room Air Room Air Room Air 06/09/18 06/09/18 06/09/18 06/09/18 13:15 13:30 13:45 14:00 Pulse 82 84 80 79 B/P (MAP) 134/84 (101) 142/80 (100) 132/90 (104) 138/83 (101) O2 Delivery Room Air Room Air Room Air Room Air 06/09/18 06/09/18 06/09/18 06/09/18 14:15 14:30 15:00 15:15 Temp 97.9 Pulse 78 81 81 73 Resp 20 B/P (MAP) 136/80 (98) 145/69 (94) 135/89 (104) 136/89 (105) O2 Delivery Room Air Room Air Room Air Room Air 06/09/18 06/09/18 06/09/18 06/09/18 15:30 15:45 16:00 16:15 Temp 97.6 Pulse 75 80 80 B/P (MAP) 141/95 (110) 134/77 (96) 138/86 (103) 136/74 (94) O2 Delivery Room Air Room Air Room Air Room Air 06/09/18 06/09/18 16:30 16:45 Pulse 82 90 B/P (MAP) 144/95 (111) O2 Delivery Room Air Room Air Rupture of Membranes Spontaneous Ruture of Membrane: No Amniotic Membrane Rupture Time: 0812 Amniotic Membrane Fluid Desc.: Clear Vaginal Bleeding Description: Normal Show Induction/Anesthesia Epidural Cath Placement - Time: 1015 Progress/Notes Pitocin augmentation administered at my protocol. Progressed to complete and + 2 station prior to pushing L&D Stage2 Stage Two Stage II Date: Jun 09, 2018 Monitors and Tracing Monitor Mode: External Heart Rate: 105 Monitor Accelerations: Uniform Monitor Decelerations: Variable Jail Variability: Average (6-10) Short Term Variability: Present Position: Right Occiput Anterior Presentation: Vertex Cord Descript/Complications Cord Vessel Description: 3 Vessels Delivery Type Delivery Method: Spontaneous Vaginal Anterior Shoulder: Right Episiotomy/Perineal Laceration Laceraction(s)/Extensions: Yes Episiotomy Description: Right Mediolateral Sutures Used: Vicryl Degree (describe repair) RML and periurethral noted. Repaired using 3-0 rapide and 2-0 vicryl suture. Condition of Delivery 1 minute Comment: 7 5 minute Comment: 9 Notes Live female weight 6lbs 8 oz Condition of Condition of : Living Exam: No Observed Abnormalities Resuscitation Resuscitation: N/A - Spontaneous Resp L&D Stage3 Stage Three Stage III Date: Jun 09, 2018 Pictocin Pitocin Administration mu/min: 6 Pitocin ml/hr: 6 Pitocin Administration Comment: pitocin wide open 30 mu at delivery of placenta Placenta Delivery Placenta Delivery: Spontaneous Delivery Summary Summary Estimated blood loss (mL): 400 400 Attending at delivery: Paulette Rodrigues DO Condition of Delivery Examined: Cervix Examined, Uterus Explored Post Hemorrhage: No Condition of Mother stable Condition of (s) stable PAULETTE RODRIGUES DO Jun 09, 2018 18:20
[2018-06-09] MEDS: IBUPROFEN 600 MG (MOTRIN) TAB PO SCH (21:03)
[2018-06-10] MEDS ORDERED: HYDROCORTISONE 2.5% CREAM (ANUSOL-HC) 30 GM ONE (00:24)
[2018-06-10 00:32] VITALS: BP 128/73
[2018-06-10] MEDS: DOCUSATE SODIUM 100 MG (COLACE) CAP PO SCH ×3 (00:32→19:40)
[2018-06-10 04:37] VITALS: BP 132/77
[2018-06-10] MEDS: IBUPROFEN 600 MG (MOTRIN) TAB PO SCH ×3 (04:37→19:40)
[2018-06-10 04:59] LABS: BASOPHILS % (AUTO) 0 % (0-10); EOSINOPHILS # (AUTO) 0.1 10^3/uL (0.0-0.3); EOSINOPHILS % (AUTO) 1 % (0-10); HEMATOCRIT 30 % (35-52); HEMOGLOBIN 9.7 G/DL (11.5-16.0); LYMPHOCYTES # (AUTO) 1.9 X 10^3 (1.0-4.0); LYMPHOCYTES % (AUTO) 21 % (12-44); MEAN CORPUSCULAR HGB CONC 33 G/DL (32-36); MEAN CORPUSCULAR VOLUME 91 FL (80-99); MEAN PLATELET VOLUME 10.7 FL (7.4-10.4); MONOCYTES # (AUTO) 1.1 X 10^3 (0.0-1.0); MONOCYTES % (AUTO) 13 % (0-12); NEUTROPHILS # (AUTO) 5.8 X 10^3 (1.8-7.8); NEUTROPHILS % (AUTO) 65 % (42-75); PLATELET COUNT 149 10^3/uL (130-400); RED CELL DISTRIBUTION WIDTH 13.9 % (10.0-14.5)
[2018-06-10 05:01] LABS: MEAN CORPUSCULAR HEMOGLOBIN 29 PG (25-34)
--- NOTE | 2018-06-10 07:00 | NUR ---
REPORT FROM ROSELYN LOUIS.
[2018-06-10 08:58] VITALS: BP 135/87
--- NOTE | 2018-06-10 08:58 | NUR ---
INITIAL ASSESSMENT COMPLETED AT BEDSIDE, NO DISTRESS NOTED, SEE INTERVENTIONS FOR DETAILED ASSESSMENTS, PLAN OF CARE EXPLAINED, NO QUESTIONS OR CONCERNS NOTED, WILL MONITOR CLOSELY. IV DC'D, SHOWER SET UP FOR PT.
[2018-06-10] MEDS ORDERED: HYDROCORTISONE 2.5% CREAM (ANUSOL-HC) 30 GM TOP SCH (09:00)
[2018-06-10] MEDS: FERROUS SULF 325 MG (IRON) TAB PO SCH (09:48)
[2018-06-10] MEDS: PRENATAL VITAMIN 1 EA TAB PO SCH (09:48)
--- NOTE | 2018-06-10 09:48 | NUR ---
SCHEDULED MEDS GIVEN, PT UP TO SHOWER.
[2018-06-10] MEDS ORDERED: guaiFENesin (MUCINEX) 600 MG TAB PO ONE (12:00)
[2018-06-10] MEDS ORDERED: PSEUDOEPHEDRINE HCL 30 MG (SUDAFED) TAB PO ONE (12:00)
--- NOTE | 2018-06-10 12:03 | Postpartum Progress Note ---
Note Note Day # 1 Subjective: Patient is without complaints. Ambulating, voiding. Tolerating a regular diet without nausea or vomiting. Normal lochia. Pain is well controlled with oral pain medications. Objective: Physical Exam: General - Alert and oriented, no apparent distress Abdomen - Soft, appropriately tender to palpation, non-distended, fundus firm at umbilicus Extremities - no edema, negative Melanie's bilaterally Assessment: PPD 1 NVD Acute blood loss anemia Plan: Routine care. Encourage breast feeding. Encourage ambulation. Ferrous sulfate supplementation. Plan for discharge tomorrow Vitals - Labs Vital Signs - I&O Vital Signs Date Time Temp Pulse Resp B/P (MAP) Pulse Ox O2 Delivery O2 Flow Rate FiO2 06/10/18 04:37 98.5 80 18 132/77 (95) 98 Room Air 06/10/18 00:32 98.7 80 20 128/73 (91) 98 Room Air 06/09/18 21:05 99.0 103 20 143/72 (95) Room Air 06/09/18 20:49 109 20 135/63 (87) Room Air 06/09/18 20:34 98 20 144/64 (90) Room Air 06/09/18 20:19 93 20 131/67 (88) Room Air 06/09/18 20:04 88 20 143/69 (93) Room Air 06/09/18 19:49 99.0 100 20 137/71 (93) Room Air 06/09/18 19:34 102 20 145/78 (100) Room Air 06/09/18 19:19 99.2 94 20 129/66 (87) Room Air 06/09/18 19:04 97 20 153/68 (96) Room Air 06/09/18 17:30 140/79 (99) 06/09/18 17:15 93 150/119 (129) 06/09/18 17:00 128 20 160/108 (125) Room Air 06/09/18 16:45 90 Room Air 06/09/18 16:30 82 144/95 (111) Room Air 06/09/18 16:15 80 136/74 (94) Room Air 06/09/18 16:00 97.6 138/86 (103) Room Air 06/09/18 15:45 80 134/77 (96) Room Air 06/09/18 15:30 75 141/95 (110) Room Air 06/09/18 15:15 73 136/89 (105) Room Air 06/09/18 15:00 81 135/89 (104) Room Air 06/09/18 14:30 81 20 145/69 (94) Room Air 06/09/18 14:15 97.9 78 136/80 (98) Room Air 06/09/18 14:00 79 138/83 (101) Room Air 06/09/18 13:45 80 132/90 (104) Room Air 06/09/18 13:30 84 142/80 (100) Room Air 06/09/18 13:15 82 134/84 (101) Room Air 06/09/18 13:00 80 133/80 (97) Room Air 06/09/18 12:45 92 135/77 (96) Room Air 06/09/18 12:30 81 20 129/69 (89) Room Air 06/09/18 12:15 83 141/66 (91) Room Air I & O 06/10/18 07:00 Intake Total 2790 ml Balance 2790 ml Labs Laboratory Tests 06/10/18 04:30: White Blood Count 9.0, Red Blood Count 3.29L, Hemoglobin 9.7#L, Hematocrit 30L, Mean Corpuscular Volume 91, Mean Corpuscular Hemoglobin 29, Mean Corpuscular Hemoglobin Concent 33, Red Cell Distribution Width 13.9, Platelet Count 149, Mean Platelet Volume 10.7H, Neutrophils (%) (Auto) 65, Lymphocytes (%) (Auto) 21 , Monocytes (%) (Auto) 13H, Eosinophils (%) (Auto) 1, Basophils (%) (Auto) 0, Neutrophils # (Auto) 5.8, Lymphocytes # (Auto) 1.9, Monocytes # (Auto) 1.1H, Eosinophils # (Auto) 0.1, Basophils # (Auto) 0.0 Microbiology 06/09/18 Urine Culture - Final, Complete NO GROWTH PAULETTE RODRIGUES DO Jun 10, 2018 12:03
--- NOTE | 2018-06-10 12:30 | NUR ---
DR RODRIGUES HERE NEW ORDERS RECEIVED.
[2018-06-10 13:45] VITALS: BP 126/88
--- NOTE | 2018-06-10 13:45 | NUR ---
SCHEDULED MEDS GIVEN, PTS FAMILY AT BEDSIDE, NO DISTRESS NOTED.
[2018-06-10] MEDS: guaiFENesin (MUCINEX) 600 MG TAB PO SCH (13:48)
--- NOTE | 2018-06-10 14:49 | Anesthesia-Regional Post-Op ---
Regional Patient Condition Mental Status: Alert, Oriented x3 Circulation: Same as Pre-Op Headache: Absent Sensation: Full Recovery Motor Block: Absent Post Op Complications Complications None Follow Up Care/Instructions Patient Instructions None needed. Anesthesia/Patient Condition Patient is doing well, no complaints, stable vital signs, no apparent adverse anesthesia problems. No complications reported per nursing. D/C home per [facility] Criteria: Yes BURTON DIAZ CRNA Jun 10, 2018 14:49
[2018-06-10 17:43] VITALS: BP 142/90
[2018-06-10 23:45] VITALS: BP 123/71
[2018-06-11] MEDS: IBUPROFEN 600 MG (MOTRIN) TAB PO SCH ×2 (02:44→07:54)
[2018-06-11 05:45] VITALS: BP 115/73
[2018-06-11] MEDS: FERROUS SULF 325 MG (IRON) TAB PO SCH (07:54)
[2018-06-11] MEDS: DOCUSATE SODIUM 100 MG (COLACE) CAP PO SCH (07:54)
[2018-06-11] MEDS: PRENATAL VITAMIN 1 EA TAB PO SCH (07:55)
[2018-06-11] MEDS: guaiFENesin (MUCINEX) 600 MG TAB PO SCH (07:55)
[2018-06-11 08:00] VITALS: BP 127/81
--- NOTE | 2018-06-11 08:00 | NUR ---
THIS RN INTRODUCES SELF TO TO PT. PHYSICAL ASSESSMENT COMPLETE AT THIS TIME. VSS. PT DENIES CONCERNS AT THIS TIME. PT REQUESTS MORE FORMULA FOR . THIS RN RESTOCKS CRIB. PT DENIES NEEDS. CALL LIGHT WITHIN REACH.
--- NOTE | 2018-06-11 09:02 | Postpartum Progress Note ---
Note Note Day # 2 Subjective: Patient is without complaints. Ambulating, voiding. Tolerating a regular diet without nausea or vomiting. Normal lochia. Pain is well controlled with oral pain medications. Objective: Physical Exam: General - Alert and oriented, no apparent distress Abdomen - Soft, appropriately tender to palpation, non-distended, fundus firm at umbilicus Extremities - no edema, negative Melanie's bilaterally Assessment: PPD 2 NVD PreE Acute blood loss anemia Plan: Routine care. Encourage breast feeding. Encourage ambulation. Ferrous sulfate supplementation. Plan for discharge [] Vitals - Labs Vital Signs - I&O Vital Signs Date Time Temp Pulse Resp B/P (MAP) Pulse Ox O2 Delivery O2 Flow Rate FiO2 06/11/18 08:00 97.6 88 16 127/81 (96) 98 Room Air 06/11/18 05:45 97.6 80 18 115/73 (87) 97 Room Air 06/10/18 23:45 98.7 105 18 123/71 (88) 98 Room Air 06/10/18 17:43 97.4 89 20 142/90 (107) Room Air 06/10/18 13:45 98.1 83 20 126/88 (101) 99 Room Air Labs Microbiology 06/09/18 Urine Culture - Final, Complete NO GROWTH PAULETTE RODRIGUES DO Jun 11, 2018 09:02
[2018-06-11 12:00] VITALS: BP 132/84
== END 2018-06-11 13:45 | disposition home or self-care (01) | DRG 806 ==
LOC: LDRP 07:15
PROVIDERS: ADMIT Obstetrics & Gynecology; ATTEND Obstetrics & Gynecology
PROC: 10E0XZZ Delivery of Products of Conception, External Approach (ICD-10-PCS; principal; 2018-06-09)
PROC: 0W8NXZZ Division of Female Perineum, External Approach (ICD-10-PCS; 2018-06-09)
PROC: 0UQMXZZ Repair Vulva, External Approach (ICD-10-PCS; 2018-06-09)
PROC: 10907ZC Drainage of Amniotic Fluid, Therapeutic from Products of Conception, Via Natural or Artificial Opening (ICD-10-PCS; 2018-06-09)
DX: O14.94 Unspecified pre-eclampsia, complicating childbirth (principal); O71.82 Other specified trauma to perineum and vulva; O90.81 Anemia of the puerperium; D62 Acute posthemorrhagic anemia; Z3A.37 37 weeks gestation of pregnancy; Z37.0 Single live birth
CPT/HCPCS: 36415; 81000; 84550; 85025; 86850; 86900; 86901; 87088

== ENCOUNTER → 2022-07-22 | Outpatient (CLI) | payer MEDICAID ==
[~2022-07-22] MED LIST: ACHD5005 PO; Benzocaine/Menthol TP; DIBU30OI TOP; DOCU100C37 PO; IBUP-844 PO; PNV1TABL67 PO
--- NOTE | 2022-07-22 17:52 | Diagnostic Imaging Report ---
INDICATION: survey. TECHNIQUE: Multiple real-time grayscale images were obtained over the gravid uterus. COMPARISON: None. FINDINGS: A single live intrauterine fetus is seen measuring 19 weeks 4 days in size with heart rate of 144 BPM. The fetus is in cephalic presentation. Placenta is anterior with no evidence of previa. Gestational sac had normal-appearing shape. Cervical length was 6.7 cm. Distance from the placental tip to the internal cervical os was 5.7 cm. There is no free fluid. survey demonstrated normal-appearing kidneys and bladder and stomach. Normal-appearing intracranial ventricles were seen. Four-chamber heart view appeared normal. Three-vessel cord and cord insertion appear normal. Views of the spine were unremarkable. Biometrical measurements are as follows: Biparietal 4.57 cm, age 19 weeks 6 days. Head circumference 17.04 cm, age 19 weeks 5 days. Abdominal circumference 13.64 cm, age 19 weeks 1 days. Femur length 2.98 cm, age 19 weeks 2 days. Sonographic estimate age: 19 weeks 4 days. Sonographic estimated date of delivery: 12/12/2022. Estimated Weight: 280 gm (+/- 41 gm). LMP percentile: 67%. heart rate: 144 beats per minute. number: 1 of 1. IMPRESSION: Single live intrauterine fetus measuring 19 weeks 4 days in size with no detectable abnormalities. Dictated by: Dictated on workstation # [id number]
== END ==
LOC: RAD 11:28
PROVIDERS: ATTEND Nurse Practitioner Women's Health
DX: Z34.02 Encounter for supervision of normal first pregnancy, second trimester (principal); Z3A.19 19 weeks gestation of pregnancy
CPT/HCPCS: 76805

== ENCOUNTER → 2022-10-21 | Outpatient (CLI) | payer MEDICAID ==
[~2022-10-21] MED LIST changes: +CEPH500T PO; +CETI10CA PO; +MULT200T12 PO; +PROP10TA8 PO
[2022-10-21 12:50] LABS: URINE CREATININE FOR RATIO 46 MG/DL (30-125)
[2022-10-21 12:51] LABS: URINE PROTEIN FOR RATIO ONLY < 6 MG/DL (6-12)
== END ==
LOC: LABNPT 12:26
PROVIDERS: ATTEND Nurse Practitioner Women's Health
DX: O13.9 Gestational [pregnancy-induced] hypertension without significant proteinuria, unspecified trimester (principal); R42 Dizziness and giddiness; Z3A.00 Weeks of gestation of pregnancy not specified
CPT/HCPCS: 82570; 84156

== ENCOUNTER 2022-10-23 07:36 | Outpatient (CLI) | payer MEDICAID ==
[~2022-10-23] VITALS: Ht 172.7 cm; Wt 88.1 kg
[~2022-10-23 07:36] MED LIST changes: -CEPH500T PO; -CETI10CA PO; -MULT200T12 PO; -PROP10TA8 PO
[2022-10-23 08:03] VITALS: BP 122/74
[2022-10-23 08:05] VITALS: BP 122/74
[2022-10-23 08:16] LABS: BILIRUBIN,URINE NEGATIVE (NEGATIVE); CLARITY,URINE SL CLOUDY; COLOR,URINE YELLOW; GLUCOSE, URINE (UA) NEGATIVE (NEGATIVE); KETONES,URINE NEGATIVE (NEGATIVE); LEUKOCYTE ESTERASE ,URINE 3+ (NEGATIVE); NITRITE,URINE NEGATIVE (NEGATIVE); PH,URINE 5.5 (5-9); PROTEIN,URINE NEGATIVE (NEGATIVE)
--- NOTE | 2022-10-23 08:28 | OB Triage Report ---
Standard Progress Note Progress Notes/Assess & Plan Date Seen by a Provider: Oct 23, 2022 Time Seen by a Provider: 08:27 Expected Date of Delivery: Dec 09, 2022 Gestational Age in Weeks: 33 Gestational Age in Days: 2 LMP/VIVIAN Comment: IUP @ 33w presents with c/o decreased FM FHR 120 TOCOs none HAMIDA PARKS DO Oct 23, 2022 08:28
[2022-10-23 08:30] LABS: BACTERIA,URINE MODERATE /HPF; WBC,URINE 25-50 /HPF
[2022-10-23 08:32] LABS: RBC,URINE RARE /HPF
[2022-10-23 08:40] VITALS: BP 115/74
[2022-10-23] MEDS ORDERED: CEPH500T PO (08:58)
[2022-10-23] MEDS ORDERED: CETI10CA PO (09:07)
[2022-10-23] MEDS ORDERED: MULT200T12 PO (09:07)
[2022-10-23] MEDS ORDERED: PROP10TA8 PO (09:07)
== END 2022-10-23 09:19 | disposition home or self-care (01) ==
LOC: LDRP 07:36 → WSo 07:36
PROVIDERS: ATTEND Obstetrics & Gynecology
DX: O36.8130 Decreased fetal movements, third trimester, not applicable or unspecified (principal); Z3A.33 33 weeks gestation of pregnancy
CPT/HCPCS: 81000; 87088; G0463; 87077; 99213

== ENCOUNTER 2022-11-19 06:27 | Inpatient (IN) | payer MEDICAID ==
[~2022-11-19] VITALS: Ht 172.7 cm; Wt 91.4 kg
[2022-11-19] VITALS (50 sets, daily range): BP systolic 108–160; BP diastolic 66–93
[~2022-11-19 06:27] MED LIST changes: +CEPH500T PO; +CETI10CA PO; +MULT200T12 PO; +PROP10TA8 PO
[2022-11-19] MEDS ORDERED: NS (IVPB) 50 ML ONE (06:51)
[2022-11-19] MEDS ORDERED: D5 LR IV SOLUTION 1,000 ML IV ONE (06:51)
[2022-11-19] MEDS ORDERED: AMPICILLIN 2,000 MG/14.8 ML (IV USE) ONE (06:51)
[2022-11-19 06:58] LABS: BASOPHILS % (AUTO) 0 % (0-10); EOSINOPHILS # (AUTO) 0.2 10^3/uL (0.0-0.3); EOSINOPHILS % (AUTO) 2 % (0-10); HEMATOCRIT 33 % (35-52); HEMOGLOBIN 10.7 g/dL (11.5-16.0); LYMPHOCYTES # (AUTO) 2.1 10^3/uL (1.0-4.0); LYMPHOCYTES % (AUTO) 30 % (12-44); MEAN CORPUSCULAR HEMOGLOBIN 28 pg (25-34); MEAN CORPUSCULAR HGB CONC 33 g/dL (32-36); MEAN CORPUSCULAR VOLUME 87 fL (80-99); MEAN PLATELET VOLUME 10.4 fL (9.0-12.2); MONOCYTES # (AUTO) 0.7 10^3/uL (0.0-1.0); MONOCYTES % (AUTO) 9 % (0-12); NEUTROPHILS # (AUTO) 4.1 10^3/uL (1.8-7.8); NEUTROPHILS % (AUTO) 58 % (42-75); PLATELET COUNT 208 10^3/uL (130-400)
[2022-11-19 06:58] LABS: BILIRUBIN,URINE NEGATIVE (NEGATIVE); CLARITY,URINE SL CLOUDY; COLOR,URINE YELLOW; GLUCOSE, URINE (UA) NEGATIVE (NEGATIVE); KETONES,URINE NEGATIVE (NEGATIVE); LEUKOCYTE ESTERASE ,URINE 2+ (NEGATIVE); NITRITE,URINE NEGATIVE (NEGATIVE); PROTEIN,URINE NEGATIVE (NEGATIVE)
[2022-11-19] MEDS: D5 LR IV SOLUTION 1,000 ML IV SCH ×2 (06:58→15:36)
[2022-11-19] MEDS ORDERED: AMPICILLIN FOR IV USE 2,000 MG in NS (IVPB) 50 ML IV ONE (07:00)
[2022-11-19] MEDS ORDERED: CATHETER FLUSH 10 ML SYR IV PRN ×2 (07:00→09:45)
[2022-11-19 07:14] LABS: BACTERIA,URINE FEW /HPF; RBC,URINE RARE /HPF
[2022-11-19] MEDS ORDERED: OXYTOCIN PRE-MIX DRIP 500 ML IV SCH ×2 (07:30→16:30)
--- NOTE | 2022-11-19 07:30 | History & Physical-OB ---
OB - Chief Complaint & HPI Date/Time Date of Admission: Date of Admission: Nov 19, 2022 at 06:27 Date seen by a Provider: Nov 19, 2022 Time Seen by a Provider: 07:25 Chief Complaint/History OB-Reason for Admission/Chief: Induction of Labor Hx : 2 Hx Para: 1 Expected Date of Delivery: Dec 09, 2022 Gestational Age in Weeks: 37 Gestational Age in Days: 1 Indication for induction: medical complication Admission Nurse Assessment Rev: Yes History of Labs O pos Antibody neg RI RPR NR HBsAg NR HIV NR GC neg GBS pos Allergies and Home Medications Allergies Coded Allergies: No Known Drug Allergies (Unverified , 06/09/18) Patient Home Medication List Home Medication List Reviewed: Yes Cephalexin (Cephalexin) 500 Mg Tablet, 500 MG PO TID Prescribed by: Bertha Mello on 10/23/22 0858 Cetirizine HCl (Zyrtec) 10 Mg Capsule, 10 MG PO, (Reported) Entered as Reported by: FÉLIX RODAS on 10/23/22 09 Multivit-Minerals/Folic Acid (Multivitamin Gummies) 200 Mcg Tab.chew, 200 MCG PO, (Reported) Entered as Reported by: FÉLIX RODAS on 10/23/22 09 Pnv with Ca,No.72/Iron/FA (Pnv Plus Multivit Tab) 1 Each Tablet, 1 EA PO DAILY@0700 Prescribed by: PAULETTE RODRIGUES on 06/09/18 181 Propranolol HCl (Propranolol HCl) 10 Mg Tablet, 10 MG PO BID, (Reported) Entered as Reported by: FÉLIX RODAS on 10/23/22 0907 OB - History Hx of Present Care: Yes Ultrasounds: Normal mid trimester US Obstetrical Complications: Pre-eclampsia, Gestational Hypertension, Other (low fluid on US yesterday) Medical Complications: None Patient Past Medical History n/a Social History/Family History 2nd Hand Smoke Exposure: No Immunizations Hepatitis B: Yes OB - Admission Exam Physical Exam HEENT: NCAT Heart: Rhythm Normal Lungs: Clear Abdomen: Gravid Extremities: Normal Reflexes: Normal Cervical Dilatation: 2cm Effacement: 75% Station: -1 Membranes: Intact Heart Rate: 130's Accelerations: Accelerations Present Decelerations: No Decelerations Short Term Variability: Present Physical Security Engineer Variability: Average (6-25) Contractions on Admission: 6-10 Minutes Apart Intensity: Mild Labs Laboratory Tests Test 11/19/22 06:20 11/19/22 06:40 Range/Units Urine Color YELLOW Urine Clarity SL CLOUDY Urine pH 6.0 5-9 Urine Specific [place] 1.010 L 1.016-1.022 Urine Protein NEGATIVE NEGATIVE Urine Glucose (UA) NEGATIVE NEGATIVE Urine Ketones NEGATIVE NEGATIVE Urine Nitrite NEGATIVE NEGATIVE Urine Bilirubin NEGATIVE NEGATIVE Urine Urobilinogen 0.2 < = 1.0 MG/DL Urine Leukocyte Esterase 2+ H NEGATIVE Urine RBC (Auto) NEGATIVE NEGATIVE Urine RBC RARE /HPF Urine WBC 10-25 H /HPF Urine Squamous Epithelial Cells 2-5 /HPF Urine Crystals NONE /LPF Urine Bacteria FEW H /HPF Urine Casts NONE /LPF Urine Mucus NEGATIVE /LPF Urine Culture Indicated YES OB - Assessment/Plan/Diagnosis Assessment Assessment: induction of labor Admission Dx 32 yo @ 37 weeks Mild PreE CHTN- on propanolol GBS pos Admission Status: Inpatient Order (span 2 midnights) Reason for Inpatient Admission: IOL at 37 weeks Plan Plan: Induction Induction Method: per Pitocin Protocol PAULETTE RODRIGUES DO Nov 19, 2022 07:30
[2022-11-19] MEDS ORDERED: fentaNYL 2 mcg/ml BUPIVA 0.125 100 ML ONE (08:48)
[2022-11-19] MEDS ORDERED: BUPIVACAINE 0.25% 10 ML (SENSORCAINE) VIAL ONE (08:56)
[2022-11-19] MEDS ORDERED: fentaNYL INJ 100 MCG/2 ML AMP ONE (08:56)
[2022-11-19] MEDS ORDERED: NALOXONE 0.4 MG/ML 1 ML (NARCAN) VIAL IV PRN ×2 (09:45→16:30)
[2022-11-19] MEDS ORDERED: LACTATED RINGERS 1,000 ML IV ONE (09:45)
[2022-11-19] MEDS ORDERED: fentaNYL 2 mcg/ml BUPIVA 0.125 100 ML EPI SCH (09:45)
[2022-11-19] MEDS ORDERED: diphenhydrAMINE 50 MG/ML INJ (BENADRYL) IVP PRN (10:15)
[2022-11-19] MEDS: AMPICILLIN FOR IV USE 1,000 MG in NS (IVPB) 50 ML IV SCH ×2 (11:38→15:37)
[2022-11-19] MEDS ORDERED: LIDOCAINE/EPI 2% 1:200,00 (XYLOCAINE) 20 ML VIAL ONE (15:45)
[2022-11-19] MEDS ORDERED: BENZOCAINE/MENTHOL (DERMOPLAST) 56 ML CAN TP PRN (16:30)
[2022-11-19] MEDS ORDERED: WITCH HAZEL(TUCKS) 40 EA JAR TOP PRN (16:30)
[2022-11-19] MEDS ORDERED: MEASLES,MUMPS,RUBELLA 1 EA INJ SQ ONE (16:30)
[2022-11-19] MEDS ORDERED: TETANUS,DIPTH,PERTUSS P/F (BOOSTRIX) 0.5 ML VIAL IM ONE (16:30)
[2022-11-19] MEDS ORDERED: DIBUCAINE 1% OINTMENT 28 GM TUBE TOP PRN (16:30)
--- NOTE | 2022-11-19 16:37 | OB Labor & Delivery Record ---
L&D History Date of Service Date of Service: Nov 19, 2022 History Expected Date of Delivery: Dec 09, 2022 Gestational Age in Weeks: 37 Hx : 2 Hx Para: 1 Complications Events: Induced HTN, Pre-Eclampsia, Oliohydramnios, Routine care Operative Indications (Cesarea: N/A-Vaginal Delivery Intrapartal Events: Extnded Bradycardia L&D Stage1 Stage One Onset of Labor - Date: Nov 19, 2022 Monitors and Tracing Monitor Mode: External Heart Rate: 100 Station: -2 Vital Signs VS - Last 72 Hours, by Label 11/19/22 11/19/22 11/19/22 11/19/22 06:30 06:32 06:37 06:42 Temp 36.4 Pulse 89 91 89 93 Resp 18 B/P (MAP) 128/77 (94) Pulse Ox 97 97 97 98 O2 Delivery Room Air Room Air Room Air Room Air 11/19/22 11/19/22 11/19/22 11/19/22 07:58 08:07 09:03 09:08 Temp 36.4 36.6 Pulse 88 81 85 83 B/P (MAP) 132/80 (97) 133/85 (101) 134/77 (96) 127/79 (95) Pulse Ox 100 99 O2 Delivery Room Air Room Air 11/19/22 11/19/22 11/19/22 11/19/22 09:13 09:18 09:23 09:28 Pulse 90 92 86 93 B/P (MAP) 141/91 (108) 143/93 (110) 134/92 (106) 128/75 (92) Pulse Ox 100 99 99 99 O2 Delivery Room Air Room Air Room Air Room Air 11/19/22 11/19/22 11/19/22 11/19/22 09:33 09:38 09:43 09:48 Pulse 85 88 90 96 B/P (MAP) 138/87 (104) 132/83 (99) 132/83 (99) 132/74 (93) Pulse Ox 98 98 98 98 O2 Delivery Room Air Room Air Room Air Room Air 11/19/22 11/19/22 11/19/22 11/19/22 09:53 09:58 10:03 10:08 Pulse 92 91 93 81 B/P (MAP) 133/82 (99) 126/80 (95) 116/77 (90) 114/77 (89) Pulse Ox 97 99 98 98 O2 Delivery Room Air Room Air Room Air Room Air 11/19/22 11/19/22 11/19/22 11/19/22 10:14 10:19 10:24 10:40 Pulse 97 109 94 84 B/P (MAP) 121/69 (86) 126/78 (94) Pulse Ox 98 99 98 O2 Delivery Room Air Room Air Room Air 11/19/22 11/19/22 11/19/22 11/19/22 10:55 11:10 11:25 11:30 Pulse 88 82 85 78 B/P (MAP) 119/81 (94) 119/79 (92) 118/73 (88) Pulse Ox 100 99 O2 Delivery Room Air Room Air 11/19/22 11/19/22 11/19/22 11/19/22 11:35 11:40 11:45 11:50 Pulse 85 82 79 75 B/P (MAP) 120/73 (89) Pulse Ox 98 98 99 98 O2 Delivery Room Air Room Air Room Air Room Air 11/19/22 11/19/22 11/19/22 11/19/22 11:55 12:05 12:10 12:15 Pulse 93 79 74 75 B/P (MAP) 120/72 (88) 117/71 (86) Pulse Ox 100 100 100 O2 Delivery Room Air Room Air Room Air 11/19/22 11/19/22 11/19/22 11/19/22 12:20 12:25 12:30 12:35 Pulse 76 82 67 77 B/P (MAP) 108/66 (80) Pulse Ox 100 100 100 98 O2 Delivery Room Air Room Air Room Air Room Air 11/19/22 11/19/22 11/19/22 11/19/22 12:40 12:45 12:52 12:55 Pulse 76 86 81 82 B/P (MAP) 113/67 (82) 113/70 (84) Pulse Ox 97 98 97 98 O2 Delivery Room Air Room Air Room Air Room Air 11/19/22 11/19/22 11/19/22 11/19/22 13:02 13:07 13:10 13:12 Pulse 84 78 80 78 B/P (MAP) 118/79 (92) Pulse Ox 99 98 99 O2 Delivery Room Air Room Air Room Air 11/19/22 11/19/22 11/19/22 11/19/22 13:25 13:40 13:45 13:50 Pulse 82 82 79 82 B/P (MAP) 114/75 (88) 119/75 (90) Pulse Ox 99 98 100 O2 Delivery Room Air Room Air Room Air 11/19/22 11/19/22 11/19/22 11/19/22 13:55 14:00 14:05 14:10 Pulse 86 82 79 79 B/P (MAP) 119/76 (90) 121/82 (95) Pulse Ox 99 100 98 O2 Delivery Room Air Room Air Room Air 11/19/22 11/19/22 11/19/22 14:15 14:25 14:40 Pulse 73 77 76 B/P (MAP) 124/83 (97) 121/81 (94) Pulse Ox 98 O2 Delivery Room Air Rupture of Membranes Amniotic Membrane Rupture Time: 08 Amniotic Membrane Fluid Desc.: Clear Vaginal Bleeding Description: Normal Show Induction/Anesthesia Epidural Cath Placement - Time: 917 Progress/Notes Patient admitted for IOL due to CHTN, Oligo, hx of preE. She had arom done and followed by pitocin and progresseed after epidural to complete and + 2 station. L&D Stage2 Stage Two Stage II Date: Nov 19, 2022 Monitors and Tracing Monitor Mode: External Heart Rate: 100 Monitor Accelerations: Uniform Monitor Decelerations: Variable Jail Variability: Average (6-10) Short Term Variability: Present Position: Right Occiput Anterior Presentation: Vertex Cord Descript/Complications Cord Vessel Description: 3 Vessels Delivery Type Infant Delivery Method: Spontaneous Vaginal Anterior Shoulder: Left Episiotomy/Perineal Laceration Laceraction(s)/Extensions: No Condition of Infant Delivery 1 minute Comment: 9 5 minute Comment: 9 Notes Live male infant weight 5lbs 11oz Condition of Condition of Infant: Living Exam: No Observed Abnormalities Resuscitation Resuscitation: N/A - Spontaneous Resp L&D Stage3 Stage Three Stage III Date: Nov 19, 2022 Pictocin Pitocin Administration mu/min: 12 Pitocin ml/hr: 12 Pitocin Administration Comment: 30 mu wide open after delivery of placenta Placenta Delivery Placenta Delivery: Spontaneous Delivery Summary Summary Estimated blood loss (mL): 100 Attending at delivery: Paulette Rodrigues DO Condition of Delivery Examined: Cervix Examined, Uterus Explored Post Hemorrhage: No Condition of Mother stable Condition of (s) stable PAULETTE RODRIGUES DO Nov 19, 2022 16:37
[2022-11-19] MEDS: IBUPROFEN 600 MG (MOTRIN) TAB PO SCH (18:07)
[2022-11-19] MEDS: ACETAMINOPHEN 500 MG TAB (TYLENOL) PO SCH (18:08)
--- NOTE | 2022-11-19 20:59 | Discharge Inst-Women's Service ---
Discharge Inst-Women's Serv Depart Medication/Instructions New, Converted or Re-Newed RX: Transmitted to Pharmacy Final Diagnosis PPD 1 NVD Problems Reviewed?: Yes Consults/Follow Up Additional Follow Up: Yes Orders/Referrals Dr. Rodrigues in 6 weeks Activity Activity: Activity as Tolerated Driving Instructions: No Driving for 1 Week NO SMOKING: NO SMOKING Nothing Inside Vagina: No Douching, No [place], No Tampons Diet Discharge Diet: No Restrictions Symptoms to Report to : Bleeding Excessive, Pain Increased, Fever Over 101 Degrees F, Vaginal Bleeding Increase, Questions/Concerns For Any Problems or Questions: Contact Your Physician PAULETTE RODRIGUES DO Nov 19, 2022 20:59
[2022-11-19] MEDS ORDERED: DOCU100C37 PO (21:01)
[2022-11-19] MEDS ORDERED: BENZ78AE5 TP (21:01)
[2022-11-19] MEDS ORDERED: ACET-93 PO (21:01)
[2022-11-19] MEDS ORDERED: FERR325T24 PO (21:01)
[2022-11-19] MEDS ORDERED: IBUP-844 PO (21:01)
[2022-11-19] MEDS ORDERED: CATHETER FLUSH 10 ML SYR IV SCH (22:00)
[2022-11-19] MEDS: DOCUSATE SODIUM 100 MG (COLACE) CAP PO SCH (22:25)
[2022-11-20] MEDS: ACETAMINOPHEN 500 MG TAB (TYLENOL) PO SCH ×2 (02:00→15:58)
[2022-11-20] MEDS: IBUPROFEN 600 MG (MOTRIN) TAB PO SCH ×4 (03:06→15:57)
[2022-11-20 03:07] VITALS: BP 128/78
[2022-11-20 05:40] LABS: BASOPHILS % (AUTO) 0 % (0-10); EOSINOPHILS # (AUTO) 0.2 10^3/uL (0.0-0.3); EOSINOPHILS % (AUTO) 2 % (0-10); HEMATOCRIT 32 % (35-52); LYMPHOCYTES # (AUTO) 2.3 10^3/uL (1.0-4.0); LYMPHOCYTES % (AUTO) 26 % (12-44); MEAN CORPUSCULAR HEMOGLOBIN 28 pg (25-34); MEAN CORPUSCULAR HGB CONC 32 g/dL (32-36); MEAN CORPUSCULAR VOLUME 88 fL (80-99); MEAN PLATELET VOLUME 10.4 fL (9.0-12.2); MONOCYTES % (AUTO) 11 % (0-12); NEUTROPHILS # (AUTO) 5.3 10^3/uL (1.8-7.8); NEUTROPHILS % (AUTO) 60 % (42-75); PLATELET COUNT 180 10^3/uL (130-400); WHITE BLOOD COUNT 8.9 10^3/uL (4.3-11.0)
--- NOTE | 2022-11-20 08:11 | Postpartum Progress Note ---
Note Note Day # 1 Subjective: Patient is without complaints. Ambulating, voiding. Tolerating a regular diet without nausea or vomiting. Normal lochia. Pain is well controlled with oral pain medications. Objective: Physical Exam: General - Alert and oriented, no apparent distress Abdomen - Soft, appropriately tender to palpation, non-distended, fundus firm at umbilicus Extremities - no edema, negative Melanie's bilaterally Assessment: PPD 1 NVD Plan: Routine care. Encourage breast feeding. Encourage ambulation. Ferrous sulfate supplementation. Plan for discharge today Vitals - Labs Vital Signs - I&O Vital Signs Date Time Temp Pulse Resp B/P (MAP) Pulse Ox O2 Delivery O2 Flow Rate FiO2 11/20/22 03:07 36.7 87 20 128/78 (95) 98 Room Air 11/19/22 22:25 36.7 78 18 123/77 (92) 98 Room Air 11/19/22 18:39 73 128/68 (88) 11/19/22 18:24 80 138/86 (103) 11/19/22 18:08 36.0 11/19/22 18:08 85 145/87 (106) 11/19/22 18:07 36.0 11/19/22 17:53 78 127/80 (96) 11/19/22 17:38 76 129/90 (103) 11/19/22 17:24 82 116/82 (93) 11/19/22 16:39 74 160/83 (108) 11/19/22 16:24 35.7 81 119/66 (83) 11/19/22 16:08 77 132/72 (92) 11/19/22 16:01 89 98 Room Air 11/19/22 15:55 66 129/66 (87) 97 Room Air 11/19/22 15:51 70 98 Room Air 11/19/22 15:45 76 98 Room Air 11/19/22 15:41 72 98 Room Air 11/19/22 15:35 75 95 Room Air 11/19/22 15:25 71 117/73 (88) 11/19/22 15:10 68 117/69 (85) 11/19/22 14:55 73 117/68 (84) 11/19/22 14:48 87 100 Room Air 11/19/22 14:40 76 121/81 (94) 11/19/22 14:25 77 124/83 (97) 11/19/22 14:15 73 98 Room Air 11/19/22 14:10 79 121/82 (95) 11/19/22 14:05 79 98 Room Air 11/19/22 14:00 82 100 Room Air 11/19/22 13:55 86 119/76 (90) 99 Room Air 11/19/22 13:50 82 100 Room Air 11/19/22 13:45 79 98 Room Air 11/19/22 13:40 82 119/75 (90) 99 Room Air 11/19/22 13:25 82 114/75 (88) 11/19/22 13:12 78 99 Room Air 11/19/22 13:10 80 118/79 (92) 11/19/22 13:07 78 98 Room Air 11/19/22 13:02 84 99 Room Air 11/19/22 12:55 82 113/70 (84) 98 Room Air 11/19/22 12:52 81 97 Room Air 11/19/22 12:45 86 98 Room Air 11/19/22 12:40 76 113/67 (82) 97 Room Air 11/19/22 12:35 77 98 Room Air 11/19/22 12:30 67 100 Room Air 11/19/22 12:25 82 108/66 (80) 100 Room Air 11/19/22 12:20 76 100 Room Air 11/19/22 12:15 75 100 Room Air 11/19/22 12:10 74 117/71 (86) 100 Room Air 11/19/22 12:05 79 100 Room Air 11/19/22 11:55 93 120/72 (88) 11/19/22 11:50 75 98 Room Air 11/19/22 11:45 79 99 Room Air 11/19/22 11:40 82 120/73 (89) 98 Room Air 11/19/22 11:35 85 98 Room Air 11/19/22 11:30 78 99 Room Air 11/19/22 11:25 85 118/73 (88) 100 Room Air 11/19/22 11:10 82 119/79 (92) 11/19/22 10:55 88 119/81 (94) 11/19/22 10:40 84 126/78 (94) 11/19/22 10:24 94 121/69 (86) 98 Room Air 11/19/22 10:19 109 99 Room Air 11/19/22 10:14 97 98 Room Air 11/19/22 10:08 81 114/77 (89) 98 Room Air 11/19/22 10:03 93 116/77 (90) 98 Room Air 11/19/22 09:58 91 126/80 (95) 99 Room Air 11/19/22 09:53 92 133/82 (99) 97 Room Air 11/19/22 09:48 96 132/74 (93) 98 Room Air 11/19/22 09:43 90 132/83 (99) 98 Room Air 11/19/22 09:38 88 132/83 (99) 98 Room Air 11/19/22 09:33 85 138/87 (104) 98 Room Air 11/19/22 09:28 93 128/75 (92) 99 Room Air 11/19/22 09:23 86 134/92 (106) 99 Room Air 11/19/22 09:18 92 143/93 (110) 99 Room Air 11/19/22 09:13 90 141/91 (108) 100 Room Air 11/19/22 09:08 83 127/79 (95) 99 Room Air 11/19/22 09:03 36.6 85 134/77 (96) 100 Room Air I & O 11/20/22 07:00 Intake Total 3164.8 ml Balance 3164.8 ml Labs Laboratory Tests 11/20/22 05:23: White Blood Count 8.9, Red Blood Count 3.60L, Hemoglobin 10.0L, Hematocrit 32L, Mean Corpuscular Volume 88, Mean Corpuscular Hemoglobin 28, Mean Corpuscular Hemoglobin Concent 32, Red Cell Distribution Width 13.6, Platelet Count 180, Mean Platelet Volume 10.4, Immature Granulocyte % (Auto) 1, Neutrophils (%) (Auto) 60, Lymphocytes (%) (Auto) 26, Monocytes (%) (Auto) 11, Eosinophils (%) (Auto) 2, Basophils (%) (Auto) 0, Neutrophils # (Auto) 5.3, Lymphocytes # (Auto) 2.3, Monocytes # (Auto) 1.0, Eosinophils # (Auto) 0.2, Basophils # (Auto) 0.0, Immature Granulocyte # (Auto) 0.1 PAULETTE RODRIGUES DO Nov 20, 2022 08:11
[2022-11-20 09:00] VITALS: BP 128/82
[2022-11-20] MEDS ORDERED: FERROUS SULF 325 MG (IRON) TAB PO SCH (09:00)
[2022-11-20] MEDS: DOCUSATE SODIUM 100 MG (COLACE) CAP PO SCH (09:03)
[2022-11-20 12:15] VITALS: BP 120/72
--- NOTE | 2022-11-20 15:03 | Anesthesia-Regional Post-Op ---
Regional Patient Condition Mental Status: Alert, Oriented x3 Circulation: Same as Pre-Op Headache: Absent Sensation: Full Recovery Motor Block: Absent Post Op Complications Complications None Follow Up Care/Instructions Patient Instructions None needed. Anesthesia/Patient Condition Patient was seen this morning and she was doing well, no complaints, stable vital signs, no apparent adverse anesthesia problems. No complications reported per nursing. TATI NIETO DO Nov 20, 2022 15:03
[2022-11-20 15:56] VITALS: BP 134/77
== END 2022-11-20 19:10 | disposition home or self-care (01) | DRG 806 ==
LOC: LDRP 06:27
PROVIDERS: ADMIT Obstetrics & Gynecology; ATTEND Obstetrics & Gynecology
PROC: 10E0XZZ Delivery of Products of Conception, External Approach (ICD-10-PCS; principal; 2022-11-19)
PROC: 10907ZC Drainage of Amniotic Fluid, Therapeutic from Products of Conception, Via Natural or Artificial Opening (ICD-10-PCS; 2022-11-19)
PROC: 3E033VJ Introduction of Other Hormone into Peripheral Vein, Percutaneous Approach (ICD-10-PCS; 2022-11-19)
DX: O10.92 Unspecified pre-existing hypertension complicating childbirth (principal); O41.03X0 Oligohydramnios, third trimester, not applicable or unspecified; Z37.0 Single live birth; O14.04 Mild to moderate pre-eclampsia, complicating childbirth; O99.824 Streptococcus B carrier state complicating childbirth; O36.8330 Maternal care for abnormalities of the fetal heart rate or rhythm, third trimester, not applicable or unspecified; Z3A.37 37 weeks gestation of pregnancy
CPT/HCPCS: 36415; 81000; 85025; 86780; 86850; 86900; 86901; 87077; 87088